=== PATIENT | female | born 1990 | race Caucasian/White ===

== ENCOUNTER 2017-02-19 17:42 | Emergency (ER) | payer MEDICAID, OTHER ==
[2017-02-19 18:12] VITALS: BP 129/72
[2017-02-19] MEDS ORDERED: Amoxicillin/Clavulanate TAB* 875 MG PO ONE (19:10)
--- NOTE | 2017-02-19 19:28 | UC ---
Throat Pain/Nasal Rubén HPI - HPI Summary HPI Summary: HEAD ACHE SORE THROAT AND COUGH SINCE YESTERDAY, FEVER CHILLS. WORKS [employer]- [employer]CH[employer] - History of Current Complaint Chief Complaint: UCRespiratory Stated Complaint: SORE THROAT, CHEST CONGESTION, AND ACHES Time Seen by Provider: 02/19/17 18:27 Hx Obtained From: Patient, Family/Business Services Sales Representative Hx Last Menstrual Period: 02/18/17 Onset/Duration: Gradual Onset, Lasting Hours, Still Present Severity: Moderate Cough: Nonproductive Associated Signs & Symptoms: Positive: Dysphagia, Hoarseness, Sinus Discomfort, Nasal Discharge, Fever - Epiglottits Risk Factors Epiglottis Risk Factors: Negative - Allergies/Home Medications Allergies/Adverse Reactions: Allergies Allergy/AdvReac Type Severity Reaction Status Date / Time CATS Allergy Itching Uncoded 04/15/14 11:13 PMH/Surg Hx/FS Hx/Imm Hx Previously Healthy: Yes - Surgical History Surgical History: None - Family History Known Family History: Negative: Cardiac Disease - Social History Occupation: Employed Full-time Lives: With Family Alcohol Use: Occasionally Alcohol Amount: 3-5 DRINKS A WEEK Substance Use Type: None Smoking Status (MU): Never Smoked Tobacco Review of Systems Constitutional: Fever, Chills, Fatigue Skin: Negative Eyes: Negative ENT: Sore Throat Respiratory: Cough Cardiovascular: Negative Gastrointestinal: Negative Genitourinary: Negative Motor: Negative Neurovascular: Negative Musculoskeletal: Negative Neurological: Negative Psychological: Negative All Other Systems Reviewed And Are Negative: Yes Physical Exam Triage Information Reviewed: Yes Appearance: No Pain Distress, Well-Nourished, Ill-Appearing Vital Signs: Initial Vital Signs Temp 99.3 F 02/19/17 18:07 Pulse 123 02/19/17 18:07 Resp 18 02/19/17 18:07 BP 129/72 02/19/17 18:07 Pulse Ox 100 02/19/17 18:07 Vital Signs Reviewed: Yes Eye Exam: Normal ENT: Positive: Hearing grossly normal, Pharyngeal erythema, TMs normal, Tonsillar swelling Dental Exam: Normal Neck exam: Normal Neck: Positive: Supple, Nontender, No Lymphadenopathy Respiratory Exam: Normal Respiratory: Positive: Chest non-tender, Lungs clear, Normal breath sounds, No respiratory distress, No accessory muscle use Cardiovascular Exam: Normal Cardiovascular: Positive: RRR, No Murmur Abdominal Exam: Normal Abdomen Description: Positive: Nontender, No Organomegaly Musculoskeletal Exam: Normal Musculoskeletal: Positive: Strength Intact, ROM Intact Neurological Exam: Normal Psychological Exam: Normal Psychological: Positive: Normal Response To Family Skin Exam: Normal Throat Pain/Nasal Course/Dx - Differential Dx/Diagnosis Differential Diagnosis/HQI/PQRI: Sinusitis, Tonsillitis, URI Provider Diagnoses: STREP TONSILLITIS Discharge - Discharge Plan Condition: Stable Disposition: HOME Prescriptions: Amoxicillin/Clavulanate TAB* [Augmentin TAB 875*] 875 mg PO BID #20 tab Patient Education Materials: Strep Throat (ED) Forms: *Work Release Referrals: [facility] [Outside] No Primary Care Phys,NOPCP [Primary Care Provider] -
== END 2017-02-19 19:25 | disposition home or self-care (01) ==
LOC: UCEAST 17:42
DX: J03.00 Acute streptococcal tonsillitis, unspecified (principal); R51 Headache
CPT/HCPCS: 87502; 87651; 99212; A9270-GY; G0463

== ENCOUNTER 2017-08-26 15:13 | Emergency (ER) | payer BC, OTHER ==
[2017-08-26 15:38] VITALS: BP 124/71
--- NOTE | 2017-08-26 17:08 | UC ---
FLU HPI - HPI Summary HPI Summary: Patient presents to the with CC of general malaise, vomiting every morning, sinus pressure and congestion and bilateral pruritis under the arms. She states symptoms have been present for over 2 months. She denies urinary symptoms, abd pain, C/D. Notes to neck pain worse with movement. She has been feeling as though she has the flu. Denies medication use. Denies drug use or ETOH abuse. Flu vaccination yesterday. - History of Current Complaint Chief Complaint: UCRespiratory Stated Complaint: SINUS Time Seen by Provider: 08/26/17 15:49 Hx Obtained From: Patient Hx Last Menstrual Period: 07/14/17 ?: No Onset/Duration: Sudden Onset Severity Currently: Moderate Severity Initially: Moderate Pain Intensity: 4 Pain Scale Used: 0-10 Numeric Associated Signs & Symptoms: Positive: F/C, Myalgia, Nasal Congestion, Vomiting Related Hx: Possible Flu/Infectious Exposure - Risk Factors Influenza Risk Factors: Negative - Allergy/Home Medications Allergies/Adverse Reactions: Allergies Allergy/AdvReac Type Severity Reaction Status Date / Time CATS Allergy Itching Uncoded 08/26/17 15:38 PMH/Surg Hx/FS Hx/Imm Hx Previously Healthy: Yes - Surgical History Surgical History: None - Family History Known Family History: Negative: Cardiac Disease - Social History Occupation: Employed Full-time Lives: With Family Alcohol Use: Occasionally Alcohol Amount: 3-5 DRINKS A WEEK Substance Use Type: None Smoking Status (MU): Never Smoked Tobacco Review of Systems Constitutional: Chills, Fatigue Skin: Negative Eyes: Negative ENT: Sore Throat, Nasal Discharge, Sinus Congestion, Sinus Pain/Tenderness Cardiovascular: Negative Gastrointestinal: Vomiting, Nausea Genitourinary: Negative Motor: Negative Neurovascular: Negative Neurological: Negative Is Patient Immunocompromised?: No All Other Systems Reviewed And Are Negative: Yes Physical Exam Triage Information Reviewed: Yes Appearance: Well-Appearing, Well-Nourished Vital Signs: Initial Vital Signs Temp 98.6 F 08/26/17 15:32 Pulse 78 08/26/17 15:32 Resp 18 08/26/17 15:32 BP 124/71 08/26/17 15:32 Pulse Ox 99 08/26/17 15:32 Vital Signs Reviewed: Yes Eye Exam: Normal Eyes: Positive: Conjunctiva Clear Dental Exam: Normal Neck exam: Normal Neck: Positive: Supple, No Lymphadenopathy Respiratory Exam: Normal Respiratory: Positive: Chest non-tender Cardiovascular Exam: Normal Cardiovascular: Positive: No Murmur Musculoskeletal Exam: Normal Musculoskeletal: Positive: Strength Intact Neurological Exam: Normal Neurological: Positive: Alert Psychological: Positive: Normal Response To Family Skin Exam: Normal Flu Course/Dx - Course Course Of Treatment: UA and . positive. Nystatin cream for underarms itching. Likely overgrowth of yeast. Reglan given for nausea. Encouraged vitamins. She is Ok for discharge and return precautions are given. - Differential Dx/Diagnosis Differential Diagnosis/HQI/PQRI: Other - , neck pain, vomiting Provider Diagnoses: Discharge - Discharge Plan Condition: Stable Disposition: HOME Prescriptions: Metoclopramide TAB* [Reglan TAB*] 5 mg PO Q6H #30 tab MDD 4 Nystatin CREAM* 1 applic TOPICAL BID #1 tube Patient Education Materials: (ED) Forms: *Work Release Referrals: No Primary Care Phys,NOPCP [Primary Care Provider] - Additional Instructions: Your diagnosis is: CONGRATULATIONS! Take Reglan up to four times daily as needed for nausea/vomiting As discussed, buy crackers for bedside and take prior to getting out of bed to prevent nausea Buy vitamins today and begin as soon as possible Nystatin cream under the arms - if symptoms become worse - discontinue and return to I have given you a referral for OBGYN. Call Monday for appt.
== END 2017-08-26 17:09 | disposition home or self-care (01) ==
LOC: UCEAST 15:13
DX: O21.9 Vomiting of pregnancy, unspecified (principal); Z3A.00 Weeks of gestation of pregnancy not specified
CPT/HCPCS: 81003; 84702; 99212; G0463

== ENCOUNTER 2018-03-24 15:32 | Emergency (ER) | payer BC ==
[2018-03-24 17:36] VITALS: BP 114/80
--- NOTE | 2018-03-24 18:08 | UC ---
Throat Pain/Nasal Rubén HPI - HPI Summary HPI Summary: 2 days of sinus pain, headache and nasal congestion is 37 weeks - History of Current Complaint Chief Complaint: UCRespiratory Stated Complaint: CONGESTION,BILATERAL EAR COMPLAINT Time Seen by Provider: 03/24/18 17:51 Hx Obtained From: Patient Hx Last Menstrual Period: 07/14/17 ?: Yes Onset/Duration: Gradual Onset, Lasting Days - 2 Pain Intensity: 3 Pain Scale Used: 0-10 Numeric Cough: None Associated Signs & Symptoms: Positive: Sinus Discomfort, Nasal Discharge - Allergies/Home Medications Allergies/Adverse Reactions: Allergies Allergy/AdvReac Type Severity Reaction Status Date / Time CATS Allergy Itching Uncoded 03/24/18 17:32 Home Medications: Home Medications Vit37/Iron/Folic Acid [Prenata Chewable Tablet] 1 chw PO DAILY [History Confirmed 03/24/18] PMH/Surg Hx/FS Hx/Imm Hx Previously Healthy: Yes - Surgical History Surgical History: Yes Surgery Procedure, Year, and Place: left hand surgery - Family History Known Family History: Negative: Cardiac Disease - Social History Occupation: Employed Full-time Lives: With Family Alcohol Use: None Alcohol Amount: 3-5 DRINKS A WEEK Substance Use Type: None Smoking Status (MU): Never Smoked Tobacco Review of Systems Constitutional: Negative Skin: Negative Eyes: Negative ENT: Nasal Discharge, Sinus Congestion, Sinus Pain/Tenderness Respiratory: Negative Cardiovascular: Negative Gastrointestinal: Negative Genitourinary: Negative Motor: Negative Neurovascular: Negative Musculoskeletal: Negative Neurological: Negative Psychological: Negative Is Patient Immunocompromised?: No All Other Systems Reviewed And Are Negative: Yes Physical Exam Triage Information Reviewed: Yes Appearance: Well-Appearing, No Pain Distress, Well-Nourished Vital Signs: Initial Vital Signs Temp 98.1 F 03/24/18 17:29 Pulse 72 03/24/18 17:29 Resp 20 03/24/18 17:29 BP 114/80 03/24/18 17:29 Pulse Ox 99 03/24/18 17:29 Vital Signs Reviewed: Yes Eye Exam: Normal Eyes: Positive: Conjunctiva Clear ENT Exam: Normal ENT: Positive: Normal ENT inspection, Hearing grossly normal, Pharynx normal, Nasal congestion, Nasal drainage, TMs normal, Sinus tenderness, Uvula midline. Negative: Trismus, Hoarse voice, Dental tenderness Dental Exam: Normal Neck exam: Normal Neck: Positive: Supple, Nontender, No Lymphadenopathy Respiratory Exam: Normal Respiratory: Positive: Chest non-tender, Lungs clear, Normal breath sounds, No respiratory distress, No accessory muscle use Cardiovascular Exam: Normal Cardiovascular: Positive: RRR, No Murmur, Pulses Normal, Brisk Capillary Refill Musculoskeletal Exam: Normal Musculoskeletal: Positive: Strength Intact, ROM Intact, No Edema Neurological Exam: Normal Neurological: Positive: Alert, Muscle Tone Normal Psychological Exam: Normal Skin Exam: Normal Throat Pain/Nasal Course/Dx - Course Assessment/Plan: tylenol, saline rinse, saline nasal spray, mucinex follow with pcp - Differential Dx/Diagnosis Provider Diagnoses: post nasal drip, Discharge - Sign-Out/Discharge Documenting (check all that apply): Discharge/Admit/Transfer - Discharge Plan Condition: Stable Disposition: HOME Patient Education Materials: Acetaminophen (By mouth), Guaifenesin (By mouth), Rhinosinusitis (ED), Nasal Rinse (ED), Postnasal Drip (DC) Referrals: Tremayne Almanza CNM [Certified Nurse Rehab Care Assistant] - If Needed - Billing Disposition and Condition Condition: STABLE Disposition: HOME
== END 2018-03-24 18:29 | disposition home or self-care (01) ==
LOC: UCCORT 15:32
DX: O26.893 Other specified pregnancy related conditions, third trimester (principal); R09.82 Postnasal drip; Z3A.37 37 weeks gestation of pregnancy
CPT/HCPCS: 99212; G0463

== ENCOUNTER 2018-04-05 22:53 | Inpatient (IN) | payer BC ==
--- NOTE | 2018-04-05 23:46 | HP ---
General Information - General Information Maternal Age: 27 Grav: 1 Estimated Due Date: 04/17/18 Determined By: LMP Maternal Blood Type and Rh: A Positive - Results this Serology/RPR Result: Non-Reactive Rubella Result: Immune HBsAg Result: Negative HIV Result: Negative GBS Culture Result: Negative Past Medical History Pertinent Past Medical History: See Records - Meningitis 2010 Pertinent Past Surgical History: None Pertinent Family History: Non-Contributory - Antepartal Records Antepartal Records: Reviewed, Uncomplicated Review of Systems Constitutional: Uncomfortable CV Complaint: No Respiratory: Shortness of Breath: No Gastrointestinal: Normal Bowel Movement Genitourinary: Leaking Fluid Musculoskeletal: Contractions Neurological: No Headache, No Visual Changes Movement: Normal Exam Allergies/Adverse Reactions: Allergies CATS Allergy (Uncoded 03/24/18 17:32) Itching 126/78 - Measurements Height: 5 ft 2 in Weight: 150 lb Body Mass Index (BMI): 27.4 Pre- Weight: 118 lb - Exam Abdomen: No Upper Quadrant Pain Breast: Breast Exam Deferred CVA: No CVA Tenderness Heart: Normal Rhythm/Heart Sounds HEENT: No Significant Findings Lungs: Clear Bilaterally Rectal: Rectal Exam Deferred Thyroid: No Thyromegaly - Abdominal Exam Abdomen Exam: Non-Tender, Fundal Height Consistent with Dates Targeted Exam Findings See L&D Outpatient Visit Provider Note for Findings: N/A Estimated Weight: 6lbs Cervical Exam: 3cm Effacement: 80% Station: -1 Presenting Part: Vertex Membrane Status: Leaking Amniotic Fluid Evaluation: Clear Bleeding/Discharge: Bloody Show EFM Findings - External Monitor Findings Baseline Heart Rate: 120 External Monitor Findings: Accelerations Present, No Pattern of Variable or Late Decelerations, Variability Moderate Contractions: Regular, Moderate, 45-90 Seconds Assessment/Plan - Reason for Visit Reason for Visit: labor evaluation - Plan Plan: Early Labor - Date/Time of Admission Date of Admission: 04/05/18 Time of Admission: 23:53
[2018-04-06 01:13] LABS: ABS Basophils 0 10^3/ul (0-0.2); ABS Eosinophils 0 10^3/ul (0-0.6); ABS Lymphocytes 1.8 10^3/ul (1.0-4.8); ABS Monocytes 0.7 10^3/ul (0-0.8); ABS Nucleated RBC 0 10^3/ul; Eosinophil % 0.1 % (0-6); Hematocrit 31 % (35-47); Lymphocyte % 13.1 % (25-47); Mean Corpuscular HGB Conc 35 g/dl (31-36); Mean Corpuscular Hemoglobin 32 pg (27-31); Mean Corpuscular Volume 91 fL (80-97); Mean Platelet Volume 6.7 um3 (7.4-10.4); Nucleated Red Blood Cells % 0; Platelet Count 228 10^3/ul (150-450); Red Blood Count 3.45 10^6/ul (4.0-5.4); Red Cell Distribution Width 13 % (10.5-15); White Blood Count 13.6 10^3/ul (3.5-10.8)
[2018-04-06] MEDS ORDERED: OBEPIDURAL* 250 ML EPIDURAL ONE (01:48)
[2018-04-06] MEDS ORDERED: Phenylephrine IV* 40 MCG/ML 10 ML SYRINGE IV PUSH PRN (02:29)
[2018-04-06] MEDS ORDERED: Famotidine TAB* 20 MG PO PRN (02:29)
[2018-04-06] MEDS ORDERED: Sodium Citrate/Citric Acid* 15 ML UDC PO PRN (02:29)
[2018-04-06] MEDS ORDERED: OBEPIDURAL* 250 ML EPIDURAL SCH (03:00)
[2018-04-06] MEDS ORDERED: Witch Hazel PAD* JAR TOPICAL PRN (11:09)
[2018-04-06] MEDS ORDERED: Glycerin ADULT SUPP PR PRN (11:09)
[2018-04-06] MEDS ORDERED: Dibucaine 1% 28.35 GM TUBE PR PRN (11:09)
[2018-04-06] MEDS: Ibuprofen TAB* 600 MG PO PRN ×3 (11:20→23:39)
[2018-04-06] MEDS ORDERED: Simethicone TAB* 80 MG TAB.CHEW PO SCH (12:30)
[2018-04-06] MEDS: Docusate CAP* 100 MG PO SCH ×2 (14:45→20:53)
[2018-04-06] MEDS: Acetaminophen TAB* 325 MG PO PRN ×2 (14:47→20:54)
[2018-04-07] MEDS: Acetaminophen TAB* 325 MG PO PRN (04:13)
[2018-04-07 06:32] LABS: ABS Basophils 0.1 10^3/ul (0-0.2); ABS Eosinophils 0 10^3/ul (0-0.6); ABS Lymphocytes 2.5 10^3/ul (1.0-4.8); ABS Monocytes 0.9 10^3/ul (0-0.8); ABS Neutrophils 9.2 10^3/ul (1.5-7.7); ABS Nucleated RBC 0 10^3/ul; Eosinophil % 0.4 % (0-6); Hematocrit 27 % (35-47); Hemoglobin 9.7 g/dl (12.0-16.0); Lymphocyte % 19.7 % (25-47); Mean Corpuscular HGB Conc 36 g/dl (31-36); Mean Corpuscular Hemoglobin 33 pg (27-31); Mean Corpuscular Volume 91 fL (80-97); Mean Platelet Volume 6.7 um3 (7.4-10.4); Nucleated Red Blood Cells % 0; Platelet Count 226 10^3/ul (150-450); Red Blood Count 2.98 10^6/ul (4.0-5.4); Red Cell Distribution Width 13 % (10.5-15); White Blood Count 12.7 10^3/ul (3.5-10.8)
[2018-04-07] MEDS: Ibuprofen TAB* 600 MG PO PRN ×2 (07:47→13:59)
[2018-04-07] MEDS: Docusate CAP* 100 MG PO SCH ×2 (07:47→13:59)
[2018-04-07 08:09] VITALS: BP 127/62
--- NOTE | 2018-04-07 08:09 | PTEDU ---
Patient Name: KAYLEE SOLIMAN KAYLEE SOLIMAN selected video: Never Ever Shake a Baby to view on 04/07/2018 at 8:09:19 AM from [facility] [place] [id number]
--- NOTE | 2018-04-07 08:20 | PTEDU ---
Patient Name: KAYLEE SOLIMAN KAYLEE SOLIMAN selected video: Follow Me Mum: [employer] to view on 018 at 8:19:18 AM from [id number]
[2018-04-07] MEDS ORDERED: Ferrous Gluconate TAB* 324 MG TAB PO SCH (09:00)
== END 2018-04-07 19:20 | disposition home or self-care (01) | DRG 560 ==
LOC: MCHOBOUT 22:53 → MCHOB 23:25
PROVIDERS: ADMIT Midwife; ATTEND Midwife
PROC: 10907ZC Drainage of Amniotic Fluid, Therapeutic from Products of Conception, Via Natural or Artificial Opening (ICD-10-PCS; principal; 2018-04-05)
PROC: 4A1HXCZ Monitoring of Products of Conception, Cardiac Rate, External Approach (ICD-10-PCS; 2018-04-05)
PROC: 10E0XZZ Delivery of Products of Conception, External Approach (ICD-10-PCS; 2018-04-06)
PROC: 0HQ9XZZ Repair Perineum Skin, External Approach (ICD-10-PCS; 2018-04-06)
DX: O70.0 First degree perineal laceration during delivery (principal); O90.81 Anemia of the puerperium; Z3A.38 38 weeks gestation of pregnancy; Z37.0 Single live birth
CPT/HCPCS: 36415; 85025; 86850; 86900; 86901; A9270-GY

== ENCOUNTER 2020-03-17 19:54 | Observation (INO) | payer BC ==
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
--- OUTSIDE RECORDS SUMMARY | 2020-03-17 20:58 | XMS REPORT | Continuity of Care Document ---
:1990 External Reference #:[id number] Author Name Evonne Osorio MD Address [address], [address] [place] [address] Care Team Providers Name Role Phone Cherelle Anton MD - Internal Medicine Care Team Information Simulation Specialist Problems Description No Information Available Social History Type Date Description Comments Sex Unknown ETOH Use Occasionally consumes alcohol Tobacco Use Start: Unknown End: Patient is a former Smoked 2 years as a Unknown smoker teen Recreational Drug Use Sporadically uses Marijuana Smoking Status Reviewed: 02/13/20 Patient is a former Smoked 2 years as a smoker teen Exercise Type/Frequency Exercises regularly Allergies, Adverse Reactions, Alerts Active Allergies Reaction Severity Comments Date Dust 12/27/2019 Cats 12/27/2019 Inactive Allergies NKDA 04/10/2014 Medications Active Medications SIG Qnty Indications Ordering Provider Date Cyclobenzaprine HCL 1 by mouth at 14tabs R53.83 Tereso Vieyra MD 01/10/2020 5mg night Tablets CBD Oil cbd oil hs Unknown History Medications No Active Medications Unknown 01/10/2020 - 01/10/2020 Sertraline HCL 1 by mouth 30tabs F41.9 Cherelle Anton MD 12/27/2019 - 50mg every day 01/10/2020 Tablets Immunizations Description No Information Available Vital Signs Date Vital Result Comment 02/13/2020 9:18am Height 63 inches 5'3" Weight 120.00 lb Heart Rate 84 /min BP Systolic Sitting 110 mmHg BP Diastolic Sitting 70 mmHg O2 % BldC Oximetry 98 % BMI (Body Mass Index) 21.3 kg/m2 Neck Circumference in inches 13 01/10/2020 4:52pm Height 63 inches 5'3" Weight 121.00 lb Heart Rate 72 /min BP Systolic Sitting 98 mmHg BP Diastolic Sitting 67 mmHg Body Temperature 98.3 F O2 % BldC Oximetry 96 % BMI (Body Mass Index) 21.4 kg/m2 Results Test Acquired Date Facility Test Result H/L Range Note Laboratory test 02/11/2020 [facility] Lyme Screen Negative Negative finding [address]/ [place] [address] To WB [phone] CBC Auto Diff 12/27/2019 [facility] White Blood 8.0 10^3/uL Normal 3.5-10.8 [address] [place] [address] [phone] Red Blood Count 4.33 10^6/uL Normal 3.70-4.87 Hemoglobin 14.1 g/dL Normal 12.0-16.0 Hematocrit 40 % Normal 35-47 Mean Corpuscular Volume 93 fL Normal 80-97 Mean Corpuscular Hemoglobin 33 pg High 27-31 Mean Corpuscular HGB Conc 35 g/dL Normal 31-36 Red Cell Distribution Width 13 % Normal 10-15 Platelet Count 241 10^3/uL Normal 150-450 Mean Platelet Volume 7.7 fL Normal 7.4-10.4 Abs Neutrophils 5.4 10^3/uL Normal 1.5-7.7 Abs Lymphocytes 2.0 10^3/uL Normal 1.0-4.8 Abs Monocytes 0.5 10^3/uL Normal 0-0.8 Abs Eosinophils 0.0 10^3/uL Normal 0-0.6 Abs Basophils 0.0 10^3/uL Normal 0-0.2 Abs Nucleated RBC 0.0 10^3/uL Granulocyte % 68.0 % Lymphocyte % 25.3 % Monocyte % 5.9 % Eosinophil % 0.6 % Basophil % 0.2 % Nucleated Red Blood Cells % 0.0 Comp Metabolic 12/27/2019 [facility] Sodium 139 mmol/L Normal 135-145 Panel [address] [place] [address] [phone] Potassium 4.2 mmol/L Normal 3.5-5.0 Chloride 105 mmol/L Normal 101-111 Co2 Carbon Dioxide 26 mmol/L Normal 22-32 Anion Gap 8 mmol/L Normal 2-11 Glucose 89 mg/dL Normal 70-100 Blood Urea Nitrogen 12 mg/dL Normal 6-24 Creatinine 0.70 mg/dL Normal 0.51-0.95 BUN/Creatinine Ratio 17.1 Normal 8-20 Calcium 9.5 mg/dL Normal 8.6-10.3 Total Protein 6.9 g/dL Normal 6.4-8.9 Albumin 4.5 g/dL Normal 3.2-5.2 Globulin 2.4 g/dL Normal 2-4 Albumin/Globulin Ratio 1.9 Normal 1-3 Total Bilirubin 1.20 mg/dL High 0.2-1.0 Alkaline Phosphatase 45 U/L Normal 34-104 Alt 14 U/L Normal 7-52 Ast 19 U/L Normal 13-39 Egfr Non- 99.6 >60 Egfr 120.6 >60 1 Laboratory 12/27/2019 [facility] TSH (Thyroid 1.25 Normal 0.34 -5.60 test finding [address] Stim Horm) mcIU/[place] [address] [phone] Hemoglobin A1c (Glyco HGB) 5.2 % Normal 4.0-5.6 2 Erythrocyte Sed Rate 2 mm/Hr Normal 0-19 Nuclear AB (Amanda) By Ifa Igg <1:80 (Negative) 3 1 Because ethnic data is not always readily available, this report includes an eGFR for both -Americans and non- Americans. The National Kidney Disease Education Program (NKDEP) does not endorse the use of the MDRD equation for patients that are not between the ages of 18 and 70, are , have extremes of body size, muscle mass, or nutritional status, or are non- or non-. According to the National Kidney Foundation, irrespective of diagnosis, the stage of the disease is based on the level of kidney function: Stage Description GFR(mL/min/1.73 m(2)) 1 Kidney damage with normal or decreased GFR 90 2 Kidney damage with mild decrease in GFR 60-89 3 Moderate decrease in GFR 30-59 4 Severe decrease in GFR 15-29 5 Kidney failure <15 (or dialysis) 2 Therapeutic target for the treatment of diabetes mellitus patients is <7% HBA1C, and in selective patients <6.0%. Please refer to [place] Diabetes Association diabetic care guidelines for further information. 3 <1:80 (Negative) REFERENCE VALUE <1:80 (Negative) Test Performed by: [facility] [address] [place] [address] Sanitation Worker Cleaning Equipment: Bill Gallego M.D. Ph.D.; CLIA# [id number] Procedures Description No Information Available Medical Devices Description No Information Available Encounters Type Date Location Provider Dx Diagnosis Office Visit 02/13/2020 Pulmonology And Evonne Osorio G47.9 Sleep disorder, 9:30a [facility] MD unspecified [place] G47.00 Insomnia, unspecified Office Visit 01/10/2020 4:40p [facility] Internal Cherelle Anton, F41.9 [facility] R53.83 Other fatigue Office Visit 12/27/2019 2:20p [facility] Internal Cherelle Anton, F41.9 [facility] Z12.4 Encounter for screening for malignant neoplasm of cervix R53.83 Other fatigue M79.602 Pain in left arm Assessments Date Code Description Provider 02/13/2020 G47.9 Sleep disorder, unspecified Evonne Osorio MD 02/13/2020 G47.00 Insomnia, unspecified Evonne Osorio MD 01/10/2020 F41.9 Anxiety disorder, unspecified Cherelle Anton MD 01/10/2020 R53.83 Other fatigue Cherelle Anton MD 12/27/2019 F41.9 Anxiety disorder, unspecified Cherelle Anton MD 12/27/2019 Z12.4 Encounter for screening for malignant neoplasm Cherelle Anton MD of cervix 12/27/2019 R53.83 Other fatigue Cherelle Anton MD 12/27/2019 M79.602 Pain in left arm Cherelle Anton MD Plan of Treatment 02/13/2020 - Evonne Osorio MDG47.9 Sleep disorder, unspecifiedNew Orders:Home Sleep Testing, Ordered: 02/13/20Follow up:2 weeks CMG47.00 Insomnia, unspecified Functional Status Description No Information Available Mental Status Description No Information Available Referrals Refer to Reason for Referral Status Appt Date Evonne Osorio MD Pt needs sleep study Sent [address] [place] [address] [phone]
--- OUTSIDE RECORDS SUMMARY | 2020-03-17 20:58 | XMS REPORT | Continuity of Care Document ---
:1990 External Reference #:[id number] Author Name James Ramirez JR, DO (transmitted by agent of provider Bhavana Ruiz) Address [address] [facility], [facility] [place] [address] Problems Active Problems Provider Date Primigravida Karla Hoffman CNM Onset: 09/25/2017 Social History Type Date Description Comments Sex Unknown Cigarette Use Former Cigarette Smoker ETOH Use Currently consumes alcohol Recreational Drug Use Denies Drug Use Tobacco Use Start: Unknown End: Patient is a former smoker Unknown Exercise Type/Frequency Exercises regularly Seat Belt/Car Seat Always uses seat belt Allergies, Adverse Reactions, Alerts Description No Known Drug Allergies Medications Active Medications SIG Qnty Indications Ordering Provider Date Pelvic Floor PT Please diagnose Eugenia Connelly, 02/17/2020 and treat pelvic CNM floor loss of sensation and pain Ferrous Gluconate Unknown Multivitamin Women Unknown Tablets Evening Violet Oil Unknown 500mg Capsules St Padron Wort Unknown 150mg Capsules Medications Administered in Office Medication SIG Qnty Indications Ordering Provider Date PT SCRN Tbco Id as Non User James Ramirez JR, DO 02/19/2020 Injection Immunizations CPT Code Status Date Vaccine Lot # [id number] Given 01/23/2018 Tetnus, Diptheria Toxoids And Acellular Pertussis, 9PD92 PT > 7Yrs Old Vital Signs Date Vital Result Comment 02/19/2020 2:17pm BP Systolic 126 mmHg BP Diastolic 80 mmHg Height 62 inches 5'2" Weight 120.00 lb BMI (Body Mass Index) 21.9 kg/m2 Last Menstrual Period 3194482 1 Parity 1 05/10/2018 11:23am BP Systolic 106 mmHg BP Diastolic 68 mmHg Height 62 inches 5'2" Weight 130.00 lb BMI (Body Mass Index) 23.8 kg/m2 Last Menstrual Period 1484985 1 Parity 1 Results Test Acquired Date Facility Test Result H/L Range Note Laboratory test 02/19/2020 [facility] Cytology SEE RESULT 1 [place] [address] BELOW [phone] GC/Chlamydia Dna 02/19/2020 [facility] GCCHL (SEE NOTE) [address] [place] [address] Disclaimer [phone] Chlamydia trachomatis Tracie Negative Negative Neisseria gonorrhoeae (GC) Tracie Negative Negative 1 SEE RESULT BELOW Name: KAYLEE EDEN : [address]: James Ramirez DO Acct: [id number] Unit: [id number] AGE: 29 Location: [facility] Re02/19/20 SEX: F Status: REG REF SPEC: [id number] ELISA: 02/19/20-[address]: James Ramirez DO REQ: [id number] RECD: 02/20/20-1201 STATUS: SOUT _ ORDERED: TP IMAGE ANALYS, HPV/Thin Prep COMMENTS: [id number] FINAL DIAGNOSIS Negative for Intraepithelial lesion or Malignancy HPV RESULTS Date Time Test Result Flag (u) Normal Range 02/19/20 1527 HPV TRACIE Negative Negative The high-risk HPV types detected by the assay include: 16, 18, 31, 33, 35, 39, 45, 51, 52, 56, 58, 59, 66, and 68. SPECIMEN(S) RECEIVED A. Ectocervical/Endocervical CYTOLOGY ADEQUACY Specimen Adequacy: Satisfactory of evaluation Transformation zone component identified CONTINUED ON NEXT PAGE DEPARTMENT OF PATHOLOGY, [facility] [employer] [place], [place] [address] Karl Byrd M.D. Director [facility] # [id number] CYTOLOGY PATIENT INFORMATION Patient Information: HPV: High risk HPV RNA testing regardless of pap results. Actual Specimen Date: 02/19/20 Last Menstrual Date: 01/21/20 Spec Date if unknown: 2016 Signed by and Reported on: EDWIN Steward(ASCP) 0820 This Pap test was evaluated with the assistance of the [employer] Test Imaging System. Due to cytologic findings at the shipping team leader microscope, comprehensive manual rescreening by a Market Analysis Director may be required. The Pap Smear is a screening test designed to aid in the detection of premalignant and malignant conditions of the uterine cervix. It is not a diagnostic procedure and should not be used as the sole means of detecting cervical cancer. Both false- positive and false- negative reports do occur. Depending on your risk status, a Pap smear should be obtained and evaluated every 1-3 years. END OF REPORT DEPARTMENT OF PATHOLOGY, [address] [place] [address] Karl Byrd M.D. Director [facility] # [id number] 2 As with all diagnostic procedures, the laboratory results obtained should be used in conjunction with other clinical information available to the physician, including confirmation by another method, as applicable. Procedures Description No Information Available Medical Devices Description No Information Available Encounters Type Date Location Provider Dx Diagnosis Office Visit 02/19/2020 [facility] James Ramirez JR, Z01.411 Encntr for frit coater exam 2:30p DO (general) (routine) w abnormal findings N64.4 Mastodynia Assessments Date Code Description Provider 02/19/2020 Z01.411 Encounter for gynecological examination James Ramirez JR DO (general) (routine) with abnormal findings 02/19/2020 N64.4 Mastodynia James Ramirez JR DO Plan of Treatment No Information Available Functional Status Description No Information Available Mental Status Description No Information Available Referrals Description No Information Available
--- OUTSIDE RECORDS SUMMARY | 2020-03-17 20:58 | XMS REPORT | Continuity of Care Document ---
:1990 External Reference #:[id number] Author Name Evonne Osorio MD (transmitted by agent of provider Yamel Ortiz) Address [address] [facility], [address] [place] [address] Care Team Providers Name Role Phone Cherelle Anton MD - Internal Medicine Care Team Information Classified Ad Taker Problems Description No Information Available Social History [...] Result H/L Range Note Laboratory test 02/11/2020 [facility] Lyme Screen Negative Negative finding [address]/ [place] [address] To WB [phone] CBC Auto Diff 12/27/2019 [facility] White Blood 8.0 10^3/uL Normal 3.5-10.8 [address] [place] [address] [phone] Red Blood Count 4.33 10^6/uL Normal 3.70-4.87 [...] Blood Cells % 0.0 Comp Metabolic 12/27/2019 [facility] Sodium 139 mmol/L Normal 135-[address] [place] [address] [phone] Potassium 4.2 mmol/L Normal 3.5-5.0 Chloride 105 [...] >60 Egfr 120.6 >60 1 Laboratory 12/27/2019 [facility] TSH (Thyroid 1.25 Normal 0.34 -5.60 test finding [address] Stim Horm) mcIU/[place] [address] [phone] Hemoglobin A1c (Glyco HGB) 5.2 % Normal [...] in selective patients <6.0%. Please refer to [place] Diabetes Association diabetic care guidelines for further information. 3 <1:80 (Negative) REFERENCE VALUE <1:80 (Negative) Test Performed by: [facility] [address] [place] [address] Music Assistant: Bill Gallego M.D. Ph.D.; [facility]# [id number] Procedures Description No Information Available Medical Devices Description No Information Available Encounters Type Date Location Provider Dx Diagnosis Office Visit 02/13/2020 Pulmonology And Evonne Osorio, G47.9 Sleep disorder, 9:30a [facility] Services [facility] unspecified [facility] G47.00 Insomnia, unspecified Office Visit 01/10/2020 4:40p [facility] Internal Cherelle Anton F41.9 [facility] R53.83 Other fatigue Office Visit 12/27/2019 2:20p [facility] Internal Cherelle Anton, F41.9 Anxiety disorder, [facility] Z12.4 Encounter for screening for malignant [...] arm Cherelle Anton MD Plan of Treatment Future Appointment(s):03/18/2020 9:15 am - Toyin Rodriguez DNP, RN, SOFTWARE DESIGN MANAGER-BC at [facility]02/13/2020 - Evonne Osorio MDG47.9 Sleep disorder, unspecifiedFollow up:2 weeks CMG47.00 Insomnia, unspecified Functional Status Description No Information Available Mental Status Description No Information Available Referrals Refer to Reason for Referral Status Appt Date Evonne Osorio MD Pt needs sleep study Sent [address] [place] [address] [phone]
--- OUTSIDE RECORDS SUMMARY | 2020-03-17 20:58 | XMS REPORT | Continuity of Care Document ---
:1990 External Reference #:[id number] Author Name James Ramirez JR, DO (transmitted by agent of provider Humaira Marie) Address [address] [facility], [facility] [place] [address] Problems Active Problems Provider Date Primigravida Karla [...] Gluconate Unknown Multivitamin Women Unknown Tablets Evening [place] Oil Unknown 500mg Capsules St Padron Wort Unknown 150mg Capsules Immunizations CPT Code Status Date Vaccine Lot # [id number] Given 01/23/2018 Tetnus, Diptheria Toxoids And Acellular Pertussis, 9PD92 PT > 7Yrs Old Vital Signs Date Vital Result Comment 02/19/2020 2:17pm BP Systolic 126 mmHg BP Diastolic 80 mmHg Height 62 inches 5'2" Weight 120.00 lb BMI (Body Mass Index) 21.9 kg/m2 Last Menstrual Period [id number] 1 Parity 1 05/10/2018 11:23am BP Systolic 106 mmHg BP Diastolic 68 mmHg Height 62 inches 5'2" Weight 130.00 lb BMI (Body Mass Index) 23.8 kg/m2 Last Menstrual Period 3591901 1 Parity 1 Results Description No Information Available Procedures Description No Information Available Medical Devices Description No Information Available Encounters Description No Information Available Assessments Description No Information Available Plan of Treatment No Information Available Functional Status Description No Information Available Mental Status Description No Information Available Referrals Description No Information Available
[2020-03-17 21:02] LABS: ABS Lymphocytes 1.6 10^3/ul (1.0-4.8); ABS Monocytes 0.3 10^3/ul (0-0.8); ABS Neutrophils 4.4 10^3/ul (1.5-7.7); Eosinophil % 0.2 %; Hematocrit 37 % (35-47); Hemoglobin 12.8 g/dL (12.0-16.0); Lymphocyte % 25.5 %; Mean Corpuscular HGB Conc 35 g/dL (31-36); Mean Corpuscular Hemoglobin 32 pg (27-31); Mean Corpuscular Volume 93 fL (80-97); Mean Platelet Volume 6.9 fL (7.4-10.4); Nucleated Red Blood Cells % 0.1; Platelet Count 263 10^3/uL (150-450); Red Blood Count 3.98 10^6 /uL (3.70-4.87); Red Cell Distribution Width 13 % (10-15); White Blood Count 6.4 10^3/uL (3.5-10.8)
--- NOTE | 2020-03-17 21:26 | ED ---
Progress - Progress Note Progress Note: Patient is received as a sign-out from Dr. Dominique at 2100 03/17/20 shift change pending CTA neck, CXR, and labs. Bloodwork and within normal limits with exception of MCH 32, MPV 6.9, total bilirubin 1.2. D-dimer was negative. Trop was negative. Beta Hcg negative. CXR showed no infiltrate, no pleural effusion, no acute process, pending official report. CTA NECK IMPRESSION: 1. No stenosis, occlusion, or visualized dissection of the extracranial internal carotid arteries bilaterally. 2. Venous enhancement limits evaluation of the V1 segment of the right vertebral artery. No significant stenosis, occlusion, or visualized dissection of the remaining right vertebral artery. 3. Additional findings described above. THIS REPORT WAS REVIEWED BY ED PHYSICIAN. Home Medications Medication Instructions Recorded Confirmed Type Vit37/Iron/Folic Acid 1 chw PO DAILY 03/24/18 03/17/20 History [Prenata Chewable Tablet] Ibuprofen TAB* [Motrin TAB* 600 MG] 600 mg PO Q6H PRN tab 04/07/18 03/17/20 Rx Cyclobenzaprine (NF) 5 mg PO QPM 03/17/20 03/17/20 History [Cyclobenzaprine 5 MG (NF)] 2318 - Patient is a 29 y/o F received as sign out, awaiting results of workup for episode of chest pain, dizziness, numbness. Workup was negative. While discussing negative results with patient and discharge planning, the patient became agitated and symptomatic. Her HR went into 180s, SVT on monitor. IV fluids started, EKG shows HR is starting to come down into sinus tachycardia of 140s . Adenosine was discussed and pacer pads placed but neither were needed. Patient converted to sinus rhythm. Patient has TITUS, Tylenol ordered. EKG at 2320 showed sinus tachycardia with rate of 142 BPM, no STEMI. EKG at 2330 showed sinus rhythm with rate of 80 BPM, no STEMI. 0002 - Patient's case was discussed with Dr. Farah, Dr. Farah accepts for admission. Course/Dx - Course Course Of Treatment: Patient is a 29 y/o F received as sign out, awaiting results of workup for episode of chest pain, dizziness, numbness. Workup was negative. While discussing negative results with patient and discharge planning , the patient became agitated and symptomatic. Her HR went into 180s, SVT on monitor. IV fluids started, EKG shows HR is starting to come down into sinus tachycardia of 140s . Adenosine was discussed and pacer pads placed but neither were needed. Patient converted to sinus rhythm. Patient has TITUS, Tylenol ordered. EKG at 2320 showed sinus tachycardia with rate of 142 BPM, no STEMI. EKG at 2330 showed sinus rhythm with rate of 80 BPM, no STEMI. 0002 - Patient' s case was discussed with Dr. Farah, Dr. Farah accepts for admission. - Diagnoses Provider Diagnoses: SVT (supraventricular tachycardia) - Provider Notifications Discussed Care Of Patient With: Jasmyne Farah Time Discussed With Above Provider: 00:02 Instructed by Provider To: Other - 0002 - Patient's case was discussed with Dr. Farah, Dr. Farah accepts for admission. - Critical Care Time Critical Care Statement: Critical care time is provided exclusive of any time spent performing procedures. Discharge ED - Sign-Out/Discharge Documenting (check all that apply): Patient Departure - admit - Discharge Plan Condition: Stable Disposition: ADMITTED TO [facility] - Billing Disposition and Condition Condition: STABLE Disposition: Admitted to [facility] - Attestation Statements Document Initiated by Scribe: Yes Documenting Scribe: JEN REILLY Provider For Whom Scribe is Documenting (Include Credential): ISAAC ALMANZA MD Scribe Attestation: JEN Caballero, scribed for ISAAC ALMANZA MD on 03/19/20 at 0511. Scribe Documentation Reviewed: Yes Provider Attestation: The documentation as recorded by the JEN tariq accurately reflects the service I personally performed and the decisions made by me, ISAAC ALMANZA MD Status of Scribe Document: Viewed
[2020-03-17 21:44] LABS: ALT 11 U/L (7-52); AST 15 U/L (13-39); Albumin 4.5 g/dL (3.2-5.2); Alkaline Phosphatase 44 U/L (34-104); Anion Gap 11 mmol/L (2-11); BUN/Creatinine Ratio 14.3 (8-20); Blood Urea Nitrogen 9 mg/dL (6-24); CO2 Carbon Dioxide 22 mmol/L (22-32); Calcium 9.2 mg/dL (8.6-10.3); Chloride 105 mmol/L (101-111); EGFR African American 136.2 (>60); EGFR Non-African American 112.5 (>60); Globulin 2.3 g/dL (2-4); Glucose 91 mg/dL (70-100); Potassium 3.5 mmol/L (3.5-5.0); Sodium 138 mmol/L (135-145); Total Protein 6.8 g/dL (6.4-8.9)
[2020-03-17 21:50] LABS: HCG Pregnancy < 0.60 mIU/mL
[2020-03-17] MEDS ORDERED: Iohexol 350* (CONTRAST) 500 ML MDV IV ONE (21:59)
[2020-03-17] MEDS ORDERED: Adenosine* 3 MG/ML VIAL ONE (23:18)
[2020-03-17] MEDS ORDERED: Acetaminophen TAB* 325 MG PO ONE (23:33)
[2020-03-18] MEDS ORDERED: NS 0.9% 1000 ML** 1,000 ML IV ONE (00:44)
[2020-03-18] MEDS: NS 0.9% 1000 ML** 1,000 ML IV SCH ×2 (02:32→21:28)
--- NOTE | 2020-03-18 03:57 | HP ---
CC: Dr. Anton* HISTORY AND PHYSICAL: DATE OF ADMISSION: 03/18/20 PRIMARY CARE PROVIDER: Dr. Anton. CHIEF COMPLAINT: Chest pain and palpitations. HISTORY OF PRESENT ILLNESS: Ms. Eden is a 29-year-old female who has a history of anxiety, who presents to the emergency room after being out on a drive with her where she suddenly felt as if her arms and legs went numb. She then states that she noticed her lips and tongue went numb. Prior to this, she states that she found what she thought was a hard lump on her lips. She states that she was playing with this and then suddenly everything went numb. She then felt a weird sensation take over her entire body. She describes this as a sensation like she was going to . She noted palpitations following this. She had associated chest pain. The palpitations lasted for approximately 3 to 5 minutes. The numbness went away quicker than that. In the emergency room, the patient was noted to have an episode of sinus tachycardia with a heart rate going up to 150, at that time she felt similar in terms of the palpitations and chest discomfort as she did in the car. Prior to today, she states that she has never had palpitations; however, she states that she has had off and on chest discomfort. She describes this as a tight sensation on the left side under her breast that radiates down into her arm. She states that when this occurs, she gets increased amount of saliva in her mouth and the area is tender to touch. She has shortness of breath with it that passes within a few minutes. She also states that over the last several months she has had intermittent numbness of her arms and legs, dizziness, and fatigue. She saw Dr. Valenzuela in [place] for a neurology consultation. She states they were concerned for MS; however, reportedly she was told that the brain MRI was negative. She also complains of when she is squatting to bean picker a toy and then stands up. She feels as if her thighs had just run several miles. She has had very poor appetite for several months. She has not been eating or drinking well. She admits to sweats at night as well as severe insomnia. She states that she vomits every morning. Yesterday, she had diarrhea and in fact was incontinent of stool twice. She states she feels as if she cannot focus with her left eye and she admits to sinus pain. PAST MEDICAL HISTORY: The rest of an 11-system review of systems is negative. Positives are as per HPI. PAST MEDICAL HISTORY: Anxiety. PAST SURGICAL HISTORY: Left hand surgery. ALLERGIES: None. MEDICATIONS: None. FAMILY HISTORY: Mom is living, she is 57 and has lupus. Dad is living, he is 63; he has asthma and COPD. SOCIAL HISTORY: The patient smoked for 5 years in college. She drinks alcohol on the weekends. She uses marijuana occasionally. 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 She is . She has 1 child. Her is her healthcare proxy. PHYSICAL EXAMINATION GENERAL: The patient is a well-developed young female, seen sitting in the stretcher, appearing to be in no acute distress. VITAL SIGNS: Blood pressure 124/93, pulse 73, respirations 14, temp 98.6, O2 sat 98% on room air. HEENT: Pupils are equal. Extraocular muscles are intact. Oropharynx is clear. Oral mucosa is moist. There is no submandibular, cervical, or subclavicular adenopathy. PULMONARY: Lungs are clear to auscultation bilaterally. CARDIAC: Normal S1, S2. Regular rate and rhythm. I do not appreciate any murmurs. There is no lower extremity edema. ABDOMEN: Bowel sounds present. Abdomen is soft, nontender, and nondistended. MUSCULOSKELETAL: There is no cyanosis or clubbing of the digits. There is full active range of motion of all 4 extremities. SKIN: Warm and dry. There are no rashes. NEUROLOGIC: Cranial nerves II through XII are grossly intact. Sensation is intact to light touch throughout. Strength is 5/5 and symmetric in both upper and lower extremities bilaterally. PSYCH: The patient is alert. I do get the feeling that she is anxious. DIAGNOSTIC STUDIES/LAB DATA: WBC 6.4, hemoglobin 12.8, hematocrit 37, and platelets 263. D-dimer less than 200. Sodium 138, potassium 3.5, chloride 105 , CO2 of 22, BUN 9, creatinine 0.63, glucose 91, calcium 9.2, bilirubin 1.20, AST 15, ALT 11, alk phos 44. Troponin 0. Albumin 4.5. Chest x-ray to my interpretation is clear without any evidence of infiltrate. CTA neck: No stenosis, occlusion, or visualized dissection of the extracranial internal carotid arteries bilaterally. Venous enhancement limits the evaluation of V1 segment of the right vertebral artery. No significant stenosis , occlusion, or visualized dissection of the remaining right vertebral artery is noted. There is an isodensity visualized within the anterior mediastinum suggestive of thymic tissue, this is incompletely evaluated. EKG: Initial EKG revealed sinus rhythm with a rate of 83. There is ST elevation that is downsloping in leads V1 and V2. There are otherwise no acute ST-T wave abnormalities. Second EKG revealed sinus tachycardia with ST depression laterally. Third EKG: Heart rate is [address] segments are all without any significant features. ASSESSMENT AND PLAN: Ms. Eden is a 29-year-old female with a history of anxiety, who has had months of intermittent neurologic symptoms including numbness of her arms and legs, dizziness and fatigue, poor appetite and vomiting every morning, who now presents to the emergency room after having sudden onset of an episode of numbness of the arms and legs followed by a sensation of impending doom and palpitations. 1. Numbness and tingling, etiology behind this is not clear. I am most suspicious this may represent a panic attack given the palpitations and diffuse numbness. She will be monitored overnight for recurrent symptoms. 2. Palpitations. The patient did have an episode of sinus tachycardia in the emergency room when she was told she was going to be discharged home. Her heart rate went up to approximately 150. This subsided on its own. I did have the nurse in the ER perform orthostatic vital signs. Lying, the patient's heart rate was 64, blood pressure was 119/77; sitting, her heart rate was 86 with a blood pressure of 140/92; and standing, her heart rate was 104 with a blood pressure of 145/100. The patient does not appear to be orthostatic by blood pressure; however, we will administer 1 L of normal saline via bolus followed by 100 mL per hour. I question if this could represent postural orthostatic tachycardia syndrome or POTS. She will be monitored on telemetry. A transthoracic echocardiogram will be obtained in the morning. We will also repeat her orthostatic vital signs in the morning after the fluid administration. Her palpitations at the time of being told she was going to be discharged again could be related to anxiety. According to outpatient record, the patient had previously been on sertraline, but felt that she had every listed side effect and therefore discontinued this medication. I will not start any medicines at this point. 3. DVT prophylaxis. According to the Adult Thrombosis Prophylaxis Risk Factor Assessment Guide, the patient has a total risk factor score of 0, making her low risk. Ambulation will be utilized as DVT prophylaxis. 4. Code status is full. TIME SPENT: Fifty-five minutes was spent admitting this patient. [id number]/[facility] #: [id number] RICARDO
[2020-03-18] MEDS: Acetaminophen TAB* 325 MG PO PRN ×3 (04:18→21:30)
[2020-03-18] MEDS ORDERED: hydrOXYzine HCL TAB* 50 MG PO PRN (05:07)
--- NOTE | 2020-03-18 13:19 | ECHO ---
*[facility]* [place] [address] Fax #: [phone] Transthoracic Echocardiogram Patient: Smiley Eden : 1990 Study Date: 03/18/2020 Age: 29 Gender: F HR: 69 bpm Height: 63 in /160 cm BSA: 1.56 m^2 Weight: 119.8 lb /54.4 kg BMI: 21.3 kg/m^2 *Wealth Management Director: * Vicky Zuniga [facility] *Referring Physician: * Jasmyne FarahReading Physician: * Sabi Good MD Indications: SOB. Palpitations. History: Supraventricular tachycardia. Risk factors: Former tobacco use. Conclusions Summary: - Left ventricle: Systolic function is normal. The estimated ejection fraction is 60-65%. Left ventricular diastolic function parameters are normal. - Right ventricle: Systolic function is normal. - Mitral valve: There is trace regurgitation. - Tricuspid valve: The leaflets are normal thickness. There is moderate regurgitation. - Pulmonary arteries: Systolic pressure is within the normal range. The peak pressure during systole by Doppler is 21.0 mm Hg. - No prior echocardiogram to compare. Study data: Transthoracic echocardiogram. Procedure: Transthoracic echocardiography was performed. Image quality was good. Complete 2D, spectral Doppler, and color flow Doppler. Location: Bedside. Patient status: Inpatient. Patient room number: 441-02. Rhythm: Normal sinus rhythm. Findings Left ventricle: The cavity size is normal. Wall thickness is normal. Systolic function is normal. The estimated ejection fraction is 60-65%. Wall motion is normal; there are no regional wall motion abnormalities. Left ventricular diastolic function parameters are normal. Right ventricle: The cavity size is mildly dilated. Systolic function is normal. Systolic pressure is within the normal range. Left atrium: The atrium is normal in size. Right atrium: The atrium is normal in size. Mitral valve: The leaflets are normal thickness. There is no evidence of stenosis. There is trace regurgitation. Aortic valve: The valve is trileaflet. The leaflets are normal thickness. There is no evidence of stenosis. There is no significant regurgitation. Tricuspid valve: The leaflets are normal thickness. There is no evidence of stenosis. There is moderate regurgitation. Pulmonic valve: The leaflets are normal thickness. There is no evidence of stenosis. There is trace regurgitation. Aorta: Aortic root: The aortic root is appears normal. Ascending aorta: The ascending aorta is appears normal. Aortic arch: The aortic arch is appears normal. Pericardium: There is no pericardial effusion. Pulmonary arteries: The main pulmonary artery is normal-sized. Systolic pressure is within the normal range. Systemic veins: Inferior vena cava: The vessel is normal in size. There is (>= 50%) respiratory change in the IVC dimension. Measurements Left ventricle Value Ref Aortic valve Value Ref XU, LAX 4.7 cm 3.8 - 5.2 Ty diam, ED 1.9 cm ----- ESD, LAX 2.9 cm 2.2 - 3.5 Peak v, S 1.52 m/sec ----- FS, LAX 37 % 27 - 45 VTI, S 31.3 cm ----- PW, ED, LAX 0.7 cm 0.6 - 0.9 Mean grad, S 5.0 mm Hg ----- FS 37 % 27 - 45 Peak grad, S 9.0 mm Hg ----- Mid-wall FS 21 % LVOT/AV, VTI ratio 0.7 ----- PW, ED 0.7 cm 0.6 - 0.9 E', lat ty, TDI 14.7 cm/sec >=10.0 Mitral valve Value Ref E/e', lat ty, 6 Peak E 0.91 m/sec ----- TDI Peak A 0.4 m/sec ----- E', med ty, TDI 12.8 cm/sec >=7.0 Decel time 183 ms --- -- E/e', med ty, 7 Peak grad, D 3.3 mm Hg ----- TDI Peak E/A ratio 2.3 ----- E', avg, TDI 13.8 cm/sec E/e', avg, TDI 7 <=14 Pulmonic valve Value Ref Peak v, S 1.1 m/sec ----- LVOT Value Ref Peak grad, S 5.0 mm Hg ----- Peak andres, S 1.04 m/sec VTI, S 22.0 cm Tricuspid valve Value Ref Peak grad, S 4 mm Hg TR peak v 2.4 m/sec <=2.8 Mean grad, S 2 mm Hg Peak RV-RA grad, S 23 mm Hg ----- Ventricular septum Value Ref Aortic root Value Ref IVS, ED 0.6 cm 0.6 - 0.9 Root diam 2.6 cm <3.2 Right ventricle Value Ref Ascending aorta Value Ref XU, LAX 2.8 cm AAo AP diam, S 2.6 cm ----- XU minor ax, A4C (H) 3.7 cm 1.9 - 3.5 mid Aortic arch Value Ref Pressure, S 26 mm Hg Arch diam 1.8 cm ----- Left atrium Value Ref Decending aorta Value Ref AP dim, ES 3.20 cm 2.70 - Tyler peak andres 0.98 m/sec ----- 3.80 ML dim, A4C 4.2 cm Pulmonary artery Value Ref SI dim, A4C 4.7 cm Pressure, S 21.0 mm Hg ----- Vol/bsa, ES, 1-p 29 ml/m^2 11 - 40 A4C Inferior vena cava Value Ref Vol/bsa, ES, A/L 24 ml/m^2 16 - 34 Diam 1.8 cm ----- Right atrium Value Ref SI dim, ES 4.3 cm 3.4 - 5.3 ML dim, ES, A4C 3.5 cm 2.6 - 4.4 Estimated RAP 3 mm Hg Legend: (L) and (H) paula values outside specified reference range. Prepared and electronically signed by Sabi Good MD 03/18/2020 13:19
--- NOTE | 2020-03-18 14:46 | PN ---
Subjective Date of Service: 03/18/20 Interval History: Ms. Eden is sitting up in bed. She states she came in last night with complaints of full body numbness, palpitations. She has had shifting numbness in the extremities that lasts 1-2 days and subsides, then moves to a different area. She also c/o vision changes, intermittent diplopia; this has been occurring since August. She has seen a neurologist at [facility], who did an MRI, which she states was negative. She had no scheduled follow up, but did have ENT , ophthalmology appts that are post-poned d/t COVID-19. Reports L eye pressure, headache, PND, a.m. emesis. Objective Active Medications: Acetaminophen (Tylenol Tab*) 650 mg PO Q4H PRN PRN Reason: PAIN - MILD Last Admin: 03/18/20 14:20 Dose: 650 mg Amoxicillin/Clavulanate Potassium (Augmentin Tab*) 875 mg PO BID BALA Stop: 03/25/20 09:01 Hydroxyzine HCl (Atarax Tab*) 50 mg PO Q6H PRN PRN Reason: Allergy Symptoms Sodium Chloride (Ns 0.9% 1000 Ml) 1,000 mls @ 100 mls/hr IV PER RATE BALA Last Admin: 03/18/20 02:32 Dose: 100 mls/hr Vital Signs: Temp Pulse Resp BP Pulse Ox 97.6 F 79 16 109/59 100 03/18/20 08:11 03/18/20 08:11 03/18/20 08:11 03/18/20 08:11 03/18/20 08:11 Oxygen Devices in Use Now: None Appearance: Ms. Eden is sitting up in bed. She is very tearful and has an episode of hyperventilation during out discussion, which resolved without intervention. She is otherwisein NAD. Eyes: No Scleral Icterus, PERRLA Ears/Nose/Mouth/Throat: NL Teeth, Lips, Gums, Clear Oropharnyx, Mucous Membranes Moist Neck: NL Appearance and Movements; NL JVP, Trachea Midline Respiratory: Symmetrical Chest Expansion and Respiratory Effort, Clear to Auscultation Cardiovascular: NL Sounds; No Murmurs; No JVD, RRR, No Edema Abdominal: NL Sounds; No Tenderness; No Distention, No Hepatosplenomegaly Extremities: No Edema, No Clubbing, Cyanosis Neurological: Alert and Oriented x 3, NL Muscle Strength and Tone, - - CN II- XII grossly intact; patellar reflax L<R Result Diagrams: 03/17/20 20:50 03/17/20 20:50 Assess/Plan/Problems-Billing Assessment: 29yof PMHx anxiety presents with months of transient, shifting numbness that developed into full body numbness, palpitations, which prompted her to come to ER for further evaluation. She has multiple other somatic complaints, including headache, abdominal pain, nausea, a.m. vomiting. - Patient Problems (1) Paresthesias Comment: -reports shifting numbness in extremities for months -reports that she follows with [facility] and has had an MRI brain; has planned ENT , opthalmology appts, currently on hold d/t pandemic; records requested -CT head WNL; CTA neck shows no stenosis, occlusion, dissection -MS or other process vs somatization -neurology consulted (2) Palpitations Comment: -sinus tachycardia at admission -no episodes on tele -HR elevated to 160's when discussing symptoms; pt tearful and anxious at this time -suspect that this is related to anxiety about current state of healthy (3) Left maxillary sinusitis Comment: -frontal and L sinus tenderness to palpation -CT brain shows evidence of sinus infection -add on Augmentin BID (4) Anxiety Comment: -pt has clear anxiety, but expresses frustration when some of her symptoms are said to be due to her anxiety (5) DVT prophylaxis Comment: -ambulation (6) Full code status Status and Disposition: Observation. Discharge when stable.
--- NOTE | 2020-03-18 17:09 | CONS ---
CC: Dr. Cherelle Anton* DATE OF CONSULTATION: 03/18/2020. DATE OF ADMISSION: 03/17/2020. PRIMARY CARE PHYSICIAN: Dr. Cherelle Anton. REASON FOR CONSULTATION: Waxing and waning paresthesia, balance issues, palpitations. HISTORY OF PRESENT ILLNESS: Ms. Eden is a 29-year-old female who has a history of anxiety and a history of waxing and waning neurologic symptoms, including numbness and tingling in her arms and legs, full body she states, at times in her face and head, lips and tongue. She noted that she had what felt like a lump on her lips at one point. She notes that she has been dropping things at times and has balance issues. These sensations come and go. Currently, she is not having any of these issues, but she says daily she has them. They have been happening since August, but worsened in November. She did see a Dr. Valenzuela, a neurologist in [place], who apparently did an MRI to rule out MS and was told that the brain MRI was negative and then was told that no further work-up was necessary. She also complained yesterday of palpitations that lasted for about five to ten minutes. She had an episode of sinus tachycardia in the ER with her heart rate going up to 150 and she felt the same palpitations. She denies any prior history of palpitations. She does not waxing and waning visual symptoms, including vision loss at time, scotoma at times. She has intermittent headaches as well. At times when she stands up , she feels like she is going to fall. She states that she has been running into things and has not been sleeping well. She noted that she vomits frequently, usually in the mornings and has had incontinence of stool in the past. At times she feels like she has difficulty swallowing. All of these symptoms come and go and they have been ongoing for several months. Currently she states she is not having any major symptoms. PAST MEDICAL HISTORY: As noted above. She reports a history of meningitis ten years ago, had to have a blood patch after that, but no residual symptoms. PAST SURGICAL HISTORY: Left hand surgery. She had a baby, a 2-year-old at home. MEDICATIONS: She is on no medications at home. ALLERGIES: She has no allergies. FAMILY HISTORY: Mother with lupus, dad with asthma and COPD. SOCIAL HISTORY: She smoked in the past in college, but no current tobacco use. She socially drinks on the weekends and uses marijuana at times. 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 REVIEW OF SYSTEMS: A 14 point review of systems was done, reviewed and as noted in the HPI. PHYSICAL EXAM: General: She is a well-nourished, well-developed female in no acute distress. She is sitting in a hospital bed. She is pleasant, well- dressed and well-groomed. Vital Signs: Temperature 97.6, pulse 79, respiratory rate 16, O2 sat 100 percent, blood pressure 109/59. HEENT: Normocephalic, atraumatic. Sclerae anicteric. Mucus membranes are moist. Oropharynx is clear. Nares are patent. Neck: Supple. No thyromegaly. No carotid bruits. No meningismus. Chest: Clear to auscultation bilaterally. Cardiovascular: Regular rate rhythm. There were no murmurs, gallops or rubs. Abdomen: Nontender and nondistended. Extremities: No clubbing, cyanosis or edema. Skin is warm and dry without lesions. Neurologic Exam: Currently, she is awake, alert and oriented times three. Her speech is fluent. There is no dysarthria. Repetition is intact. Recall of recent and remote events is intact. Vocabulary is intact. Her mood is dysthymic. Affect, mood congruent. Cranial Nerves: Pupils are equally round and reactive to light and accommodation. Extraocular muscles are intact. There is no nystagmus, no diplopia, no ptosis noted. Her visual leyva are full to confrontation. There is no I and O appreciated bilaterally. Face is symmetric. Facial sensation is currently intact to light touch. Tongue is midline. Palate raises symmetrically. Motor Exam: 5/5 throughout. Tone and bulk are both normal. No focal deficits. DTR's are 2+ and symmetric in the upper and lower extremities, biceps, triceps, brachioradialis, patella; 1+ at the ankles, withdraw Babinski. Sensation is currently intact to light touch and pinprick in all extremities. No focal deficits noted. [id number] and rapid alternating movements are intact without difficulty. Gait is normal with a good arm swing. Romberg: No sway with eyes open or closed. DIAGNOSTIC STUDIES/LAB DATA: She has had several studies done here. Her lab work includes an MCH of 32, MPV of 6.9. She had a D-dimer of less than 200. Chemistry showed a total bili of 1.20. Otherwise normal. She had a CT of the brain done yesterday which showed no acute intracranial abnormalities with maxillary sinusitis. She had a CT angiogram of the neck done which showed no stenosis, occlusion, or visualized dissection of the extracranial internal carotid arteries. Venous enhancement limits evaluation of the V1 segment of the right vertebral artery. No significant stenosis, occlusion, or visualized dissection of the remaining right vertebral artery. Additional findings include azygos anterior cerebral identified which is patent. Lymph nodes: Isodensity visualized in the anterior mediastinum suggestive of thymic tissue. She had an echocardiogram done that showed an ejection fraction of 60 to 65 percent. Diastolic function parameters are normal. Right ventricular systolic function is normal. Mitral valve: Trace regurg. Tricuspid valve: Leaflets are normal thickness; there is moderate regurg. Pulmonary artery: Systolic pressure is within normal range. No prior echocardiogram to compare. ASSESSMENT AND PLAN: Ms. Eden is a 29-year-old female who has no significant past medical history other than anxiety who presents with waxing and waning neurologic symptoms that are bilateral, involving the entire body at times, including numbness, tingling, weakness, balance issues, speech difficulties, vision symptoms. These have been ongoing since August and have worsened since November. They are intermittent in nature. Currently, she is not having any symptoms. She did see a neurologist at the [facility] about a month ago and an MRI was apparently done to get those records, but she was told no further work-up was necessary and the MRI was negative. There was some concern for MS at that time. She came in with palpitations as well. Echo showed tricuspid regurg. She is currently on a heart monitor. She did have some sinus tachycardia in the ER. Waxing and waning neurologic symptoms: At this point, my suspicion for MS given her history is low, but I think we are going to repeat an MRI of the brain with and without contrast and an MRI of the cervical spine with and without contrast to rule out any evidence of new demyelination since her last MRI. Assuming that these are negative, I explained to her that this is something we can follow-up as an outpatient. I would like to schedule an appointment with her in about a month or so. If the MRI shows anything positive , please contact Neurology and we can make further recommendations. Defer any additional cardiac work-up to primary team, but she would benefit from an outpatient 30 day event monitor to look for any evidence of arrhythmia. By suspicion for any embolic phenomenon given the length of time that she has had symptoms and the nature of her symptoms is extremely low. I do not think that these are vascular in nature. If it quite possible that given her history of anxiety, that could be contributing to some of her symptoms given the fact that she has bilateral perioral and tongue numbness and tingling at times. I found no focality on examination today. Will plan to follow her up as an outpatient, unless the MRI's show anything. Otherwise, we will sign off for now. We will request the records as an outpatient for review before I order any additional studies, including lab work and possible LP. Thank you for the opportunity to participate in the care of this very interesting patient. [id number]/[facility] #: [id number] RICARDO
[2020-03-18 18:10] LABS: Erythrocyte Sed Rate 7 mm/Hr (0-19)
[2020-03-18 18:39] LABS: TSH (Thyroid Stimulating Horm) 2.57 mcIU/mL (0.34-5.60)
[2020-03-18 18:50] LABS: Folate > 20.00 ng/mL (>3.99)
[2020-03-18] MEDS ORDERED: Melatonin 3 MG TAB PO PRN (20:33)
[2020-03-18] MEDS: Amoxicillin/Clavulanate TAB* 875 MG PO SCH (21:30)
[2020-03-19] MEDS: Amoxicillin/Clavulanate TAB* 875 MG PO SCH (07:58)
[2020-03-19] MEDS: Acetaminophen TAB* 325 MG PO PRN (07:58)
[2020-03-19 08:44] VITALS: BP 104/52
[2020-03-19] MEDS ORDERED: Gadoteridol* (CONTRAST) 279.3 MG/ML 10 ML IV ONE (08:48)
[2020-03-19] MEDS ORDERED: Lactobacillus Acidophilus* 1 TAB PO SCH (09:00)
--- NOTE | 2020-03-19 13:38 | DS ---
CC: Dr. Catalino Boudreaux; Dr. Cherelle Anton* DISCHARGE SUMMARY: DATE OF ADMISSION: 03/18/20 DATE OF DISCHARGE: 03/19/20 PRIMARY CARE PROVIDER: Dr. Cherelle Anton; [facility]. NEUROLOGIST: Dr. Catalino Boudreaux. ATTENDING PHYSICIAN: Dr. Lisa Monterroso* (dictated by PASTOR Brink). PRIMARY DIAGNOSES: 1. Numbness, unknown cause. 2. Palpitations. 3. Left maxillary sinusitis, suspect bacterial. SECONDARY DIAGNOSIS: Anxiety. STUDIES WHILE IN THE HOSPITAL: 1. Chest x-ray. Impression: No evidence for active cardiopulmonary disease. 2. CTA neck. Impression: No stenosis, occlusion, or visualized dissection of the extracranial, internal carotid arteries bilaterally. Venous enhancement limits evaluation of the V1 segment of the right vertebral artery. No significant stenosis, occlusion, or visualized dissection of the remaining right vertebral artery. Additional findings described above. 3. Transthoracic echocardiogram. Summary: LV systolic function normal. Estimated EF 60% to 65%. LV diastolic function parameters normal. RV systolic function normal. Trace MR, moderate TR. Pulmonary artery systolic pressure is within normal range. Peak pressure during systole by Doppler is [address] brain without. Impression: No acute/significant intracranial abnormality. Mild mucosal disease of the left maxillary sinus. 5. MRI brain with and without contrast. Impression: Unremarkable MRI of the brain. No abnormal enhancement. 6. MRI cervical spine with and without. Impression: Mild degenerative disk disease with a left-sided disk protrusion at C5-C6. There is no significant neural foraminal narrowing or central canal stenosis. No abnormal enhancement or abnormal cord signal. Straightening with mild reversal of the normal cervical lordosis. CONSULTS WHILE IN THE HOSPITAL: Neurological consult. Assessment and Plan: No significant past medical history other than anxiety. Presents with waxing and waning neurological symptoms that are bilateral, involving entire body at times including numbness, tingling, weakness, balance issues, speech difficulties, vision symptoms, ongoing since August, worsened since November, intermittent. Currently no symptoms. Did see [facility] neurologist approximately 1 month ago and MRI was apparently done but was told no further workup necessary and MRI was negative. Some concern for MS at that time. Came in with palpitations. Echo showed tricuspid regurg. Currently on a heart monitor. Did have sinus tachycardia in ER. Waxing and waning neurological symptoms. At this point, my suspicion for MS given history is low but going to repeat MRI of the brain with and without contrast, MRI cervical spine with and without contrast to rule out any evidence of new demyelination since last MRI, assuming negative we can follow up outpatient. Schedule appointment in approximately 1 month. If MRI is positive, please contact Neuro for further recommendations. Defer cardiac workup to primary team, but would benefit from 30-day event monitor for evidence of arrhythmia. Suspicion for embolic phenomenon given length of time that she has had symptoms and nature of history is extremely low. Do not think that these are vascular, quite possible that given history of anxiety that could be contributing. Given the fact she has bilateral perioral and tongue numbness and tingling, I found no focality on examination. Plan to follow up outpatient. DISCHARGE MEDICATIONS: Home medications: 1. Cyclobenzaprine 5 mg p.o. daily. 2. Ibuprofen 600 mg p.o. q.6 hours. 3. vitamin 1 tab p.o. daily. [place] Medications: Amoxicillin/clavulanate 875 mg p.o. b.i.d. x13 more doses. HISTORY OF PRESENT ILLNESS/HOSPITAL COURSE: Ms. Eden is a 29-year-old female with the past medical history of anxiety who presented to the ER with multiple complaints including palpitations, perioral and tongue numbness, full body numbness x1 episode. She has a history of intermittent shifting numbness since August. She follows with a neurologist at [facility] who she states did an MRI of the brain and reported no abnormalities and no need for further followup. She also reports following with an ENT. At admission, she has quite a few symptoms including headache, left eye pressure, burred vision, and seeing "spots shaped like pretzels," numbness that is intermittent and shifting from extremity to extremity that has also included her whole body starting today and lasting approximately 30 minutes, abdominal pain and increased peristaltic noises, nausea, a.m. vomiting. She was admitted overnight for workup which included a head and neck CTA which showed enhancement of V1 segment of right vertebral arteries without significant stenosis, occlusion, or dissection of the remaining right vertebral artery, but otherwise no abnormalities. Transthoracic echocardiogram showed moderate MO, trace MR. She was monitored on telemetry overnight and was noted to have normal sinus rhythm throughout her stay without any episodes of tachycardia although she did have sinus tachycardia at admission. She had a brain CT that revealed left maxillary sinus mucosal disease. An MRI of the brain and C-spine were relatively unremarkable with cervical MRI showing mild degenerative disk disease at C5-C6 without neural foraminal narrowing or central canal stenosis. Neurology was consulted and recommended the above studies, brain MRI, cervical spine MRI. They recommended that if there were no abnormalities that the patient could follow up outpatient. This was the case and therefore the patient will be followed outpatient by Dr. Boudreaux in approximately 4 weeks. TSH, B12, and folate were obtained and were within normal limits. At this time, the cause of the patient's paresthesias are unknown. For the patient's reported palpitations, she was monitored on telemetry throughout her stay. She had no evidence of tachycardia or arrhythmia. Recommendations were made to follow up with her primary care provider to obtain a referral to Cardiology for an event monitor of some sort. The patient also reports she feels as if her "left eye is popping out of her head" and reports associated left-sided headache. She reports that she has postnasal drainage regularly. She reports a.m. vomiting which I suspect might be due to her postnasal drainage. Per physical exam, left maxillary and frontal sinus tenderness and imaging that reveals left maxillary mucoid disease. I suspect that the patient has left maxillary sinusitis. My suspicion is this is bacterial as the patient has reported these symptoms for an extended amount of time. She has been started on Augmentin and will be discharged on this. The patient and I had a long discussion about her symptoms and discussed the need for continued workup. We discussed her neurological symptoms will be followed by Dr. Boudreaux, her palpitations will be addressed with a cardiac event monitor in the outpatient setting. While discussing the discharge plan and recommendations for followup, the patient became very agitated. She began to hyperventilate. She was tearful throughout our conversation and intermittently agitated. The patient states "I am tired of everybody blaming this on anxiety. " We discussed that we will continue to work this up, but that this warrants an extensive outpatient workup and that we have not mentioned anxiety. The patient continues to be upset and agitated. This aligner typewriter discussed with her the outpatient plan as extensively as possible and the patient appears resigned but is agreeable. We discussed symptomatic treatment for her sinusitis and she states "I am tired of everybody telling me to take Flonase for my palpitations. " I tried to reassure that her palpitations will be worked up by her primary care provider and referral to bend sorter for event monitoring, but she again appears resigned but she again becomes agitated and short with this aligner typewriter. At the time of discharge, the patient states she has a terrible headache which is "made worse by talking to you." She denies any numbness or tingling at this time. She has intermittent palpitations and reports that the last time she had palpitations was when she was drinking water at which time she states, "am I supposed to live with palpitations every time I am doing tasks that I do in my daily life?" She denies dizziness, lightheadedness, chest pain. She reports some intermittent mild shortness of breath. She denies abdominal pain, nausea, or vomiting at this time. She denies focal weakness. Ms. Eden is stable for discharge home. Vital Signs: Temperature 97.2 temporal, heart rate 74, respiratory rate 16, oxygen saturation 99% on room air, blood pressure 104/52. PHYSICAL EXAMINATION: General: Ms. Eden is a young white female who is sitting up in bed. She is tearful throughout our conversation and is intermittently agitated. She appears to have an episode of hyperventilation during our discussion. She is anxious appearing. HEENT: PERRL, EOMI. Visual leyva are grossly intact. Sclerae is nonicteric without injection. Hearing is grossly intact. There is left maxillary tenderness to palpation, frontal sinus tenderness to palpation. Oral mucous membranes are moist. There are no lesions. The pharynx is clear. Tongue is at midline and the palate elevates symmetrically. Cardiovascular: Sinus tachycardia with S1 and S2 present without murmurs, rubs, clicks, or gallops. There is no JVD or peripheral edema. Pulmonary: Symmetrical chest expansion without use of accessory muscles. Clear to auscultation bilaterally without rhonchi, wheezes, or rales. Abdomen: Bowel sounds in all quadrants, soft, nontender to palpation. Neuro : The patient is awake, she is alert and oriented x3. Cranial nerves II through XII are grossly intact. She moves all of her extremities. Her motor strength is 5/5 bilaterally in the upper and lower extremities. DISCHARGE PLAN: Ms. Eden will be discharged to home. CONDITION: Good. DIET: Resume home diet. ACTIVITY: As tolerated. MEDICATIONS: Please complete course of Augmentin for sinus infection. EDUCATION: 1. Follow up with [facility] in 4 to 7 days at which time a referral to Cardiology for event monitor can be obtained. 2. Follow up with Neurology, Dr. Boudreaux in 3 to 4 weeks. 3. Follow up with ENT as scheduled. 4. Return to the ER or the nearest hospital if you experience any return or worsening of symptoms, chest pain or discomfort, palpitations, shortness of breath, dizziness, lightheadedness, loss of consciousness, high fevers, chills, night sweats, or any other worrisome signs or symptoms. This is a summarized report of a complex medical history and hospital stay. For further details, please see the entire medical record. TIME SPENT: Approximately 40 minutes was spent on this discharge, greater than half that time was spent [id number] with the patient discussing discharge plans and instructions. PASTOR DA SILVA [id number]/CPS #: [id number] MTDD
== END 2020-03-19 13:15 | disposition home or self-care (01) ==
LOC: ED 19:54 → MEDTELE 03-18 00:43
PROVIDERS: ADMIT Hospitalist; ATTEND Internal Medicine
DX: R20.0 Anesthesia of skin (principal); J32.0 Chronic maxillary sinusitis; R00.2 Palpitations; I47.1 Supraventricular tachycardia; R07.9 Chest pain, unspecified; R06.02 Shortness of breath; F41.9 Anxiety disorder, unspecified; M50.30 Other cervical disc degeneration, unspecified cervical region; R53.83 Other fatigue; R94.31 Abnormal electrocardiogram [ECG] [EKG]; Z87.891 Personal history of nicotine dependence; Z79.899 Other long term (current) drug therapy
CPT/HCPCS: 36415; 70450; 70498; 70553; 71046; 72156; 80053; 82607; 82746; 84443; 84484; 84702; 85025; 85379; 85652; 93005; 93306; 96360; 99285; A9270-GY; A9579; G0378; J0153; Q9967